=== PATIENT | male | born 1960 ===

== ENCOUNTER 2022-06-03 07:09 | Day surgery (SDC) | payer MEDICAID ==
[~2022-06-03] VITALS: Ht 162.6 cm; Wt 61.7 kg
[2022-06-03] MEDS ORDERED: MIDAZOLAM HCL 5 MG/5 ML VIAL ONE (07:29)
[2022-06-03] MEDS ORDERED: DIPHENHYDRAMINE INJ 50 MG/ML VIAL ONE (07:30)
[2022-06-03] MEDS ORDERED: fentaNYL CITRATE/PF 100 MCG/2 ML AMP ONE (09:47)
[2022-06-03] MEDS ORDERED: LIDOCAINE 2%, 20 ML MDV ONE (10:16)
[2022-06-03] MEDS ORDERED: fentaNYL CITRATE/PF 100 MCG/2 ML AMP IVP ONE (10:16)
[2022-06-03] MEDS ORDERED: BUPIVACAINE /PF 0.25% 30 ML VIAL INJ ONE (10:16)
[2022-06-03] MEDS ORDERED: methylPREDNISolone ACETATE 40 MG/ML ONE (10:16)
[2022-06-03] MEDS ORDERED: MIDAZOLAM HCL 5 MG/5 ML VIAL IVP ONE (10:16)
[2022-06-03] MEDS ORDERED: IOHEXOL 300 mgI/mL, 50 mL INFUS..BTL IV ONE (10:16)
[2022-06-03] MEDS ORDERED: DIPHENHYDRAMINE INJ 50 MG/ML VIAL IVP ONE (10:16)
[2022-06-03 13:08] VITALS: BP_SYST 125
== END 2022-06-03 11:29 | disposition home or self-care (01) ==
LOC: SDS 07:09 → SMU 07:10 → SDS 11:29
PROVIDERS: ATTEND Internal Medicine
DX: M51.16 Intervertebral disc disorders with radiculopathy, lumbar region (principal); M47.26 Other spondylosis with radiculopathy, lumbar region; E78.5 Hyperlipidemia, unspecified; Z79.899 Other long term (current) drug therapy; Z20.822 Contact with and (suspected) exposure to COVID-19
CPT/HCPCS: 36415; 62323; U0003; J3490; J1200; J2001; J1030; J2250; J3010; Q9967; 76000